=== PATIENT | male | born 1935 | race African-American/Black ===

== ENCOUNTER 2018-12-16 16:50 | Emergency (ER) | payer MEDICARE, OTHER ==
[2018-12-16 17:27] LABS: #Basophils 0.1 thou/uL (0.0-0.2); #Lymphocytes 1.6 thou/uL (1.20-3.40); #Monocytes 0.7 thou/uL (0.11-0.59); #Neutrophils 5.9 thou/uL (1.40-6.50); %Basophils 1.1 % (0.0-1.0); %Eosinophils 0.4 % (0.0-10.0); %Lymphocytes 19.2 % (21.0-51.0); %Monocytes 8.9 % (0.0-10.0); %Neutrophils 70.5 % (42.0-75.0); Hemoglobin 14.1 g/dL (14.0-18.0); Mean Corpuscular HGB CONC 31.1 g/dL (32.0-36.0); Mean Corpuscular Hemoglobin 24.6 pg (27.0-31.0); Mean Corpuscular Volume 79.3 fL (78.0-98.0); Mean Platelet Volume 10.3 fL (7.4-10.4); Platelet Count 219 thou/uL (130-400); RBC Distribution Width 14.4 % (11.5-14.5); Red Blood Cell (RBC) Count 5.71 mill/uL (4.70-6.10); White Blood Cell (WBC) Count 8.4 thou/uL (4.8-10.8)
--- NOTE | 2018-12-16 17:46 | RAD ---
XR Chest 1 View Portable HISTORY: Hypertension and diabetes COMPARISON: None. FINDINGS: Heart size and mediastinum are within normal limits. There are atherosclerotic changes of t he aorta. The lungs are clear of infiltrative process. IMPRESSION: No active intrathoracic disease.
[2018-12-16 17:48] LABS: ALT (SGPT) 21 U/L (8-55); AST (SGOT) 21 U/L (5-34); Albumin 4.6 g/dL (3.4-4.8); Alkaline Phosphatase 77 U/L (40-150); Anion Gap 19 mmol/L (10-20); BUN (Urea Nitrogen) 48 mg/dL (8.4-25.7); Bilirubin, Total 0.8 mg/dL (0.2-1.2); CK (CPK) 281 U/L (30-200); Calc. Creatinine Clearance 0 mL/min (70-130); Calcium 9.9 mg/dL (7.8-10.44); Carbon Dioxide 24 mmol/L (23-31); Chloride 104 mmol/L (98-107); Estimated GFR-MDRD 36; Globulin 3.5 g/dL (2.4-3.5); Glucose 131 mg/dL (83-110); Magnesium 2.8 mg/dL (1.6-2.6); Potassium 3.7 mmol/L (3.5-5.1); Protein, Total 8.1 g/dL (5.8-8.1); Sodium 143 mmol/L (136-145)
[2018-12-16 18:02] LABS: Thyroid Stimulating Hormone 0.8874 uIU/mL (0.35-4.94)
[2018-12-16 18:03] LABS: HBSAg Index 0.42 S/CO (0-0.99); Hep B Surf Ag Non-Reactive S/CO (NonReactive); Hep C IgG Ab Non-Reactive (NonReactive); Hep C Index 0.05 S/CO (0-0.79)
[2018-12-16 18:04] LABS: HIV (1/2) Antibody/Antigen Non-Reactive (NonReactive)
[2018-12-16 18:05] LABS: HIV 1/2 INDEX 0.09 S/CO (<1.00)
[2018-12-16 18:37] LABS: Bilirubin Negative (Negative); Blood, Urine Trace (Negative); Clarity Turbid (Clear); Glucose, Urine (Dipstick) Normal (Negative); Leukocyte Negative Leu/uL (Negative); Nitrite Negative (Negative); Protein, Urine (Dipstick) 200 mg/dL (Neg-Trace); RBC/HPF 0-3 HPF (0-3); Squamous Epithelial None Seen HPF (0-3); Urobilinogen Normal mg/dL (Less than 2); WBC/HPF 0-3 HPF (0-3)
[2018-12-16 18:46] LABS: Bacteria/HPF 1+ HPF (None Seen)
== END 2018-12-16 20:36 | disposition home or self-care (01) ==
LOC: ERS 16:50
DX: R53.81 Other malaise (principal); E11.9 Type 2 diabetes mellitus without complications; I10 Essential (primary) hypertension; Z79.82 Long term (current) use of aspirin; Z79.899 Other long term (current) drug therapy; Z79.84 Long term (current) use of oral hypoglycemic drugs
CPT/HCPCS: 36415; 36416; 71045; 80053; 81003; 81015; 82550; 83605; 83735; 83880; 84443; 84484; 85025; 86803; 87340; 87389

== ENCOUNTER 2021-10-26 12:12 | Observation (INO) | payer MEDICARE ==
[2021-10-26 13:20] LABS: #Lymphocytes 0.9 thou/uL (1.20-3.40); #Monocytes 0.7 thou/uL (0.11-0.59); #Neutrophils 4.8 thou/uL (1.40-6.50); %Basophils 0.3 % (0.0-1.0); %Eosinophils 0.8 % (0.0-10.0); %Lymphocytes 13.6 % (21.0-51.0); %Monocytes 10.3 % (0.0-10.0); %Neutrophils 75.1 % (42.0-75.0); Mean Corpuscular HGB CONC 30.6 g/dL (32.0-36.0); Mean Corpuscular Hemoglobin 26.4 pg (27.0-31.0); Mean Corpuscular Volume 86.2 fL (78.0-98.0); Platelet Count 150 thou/uL (130-400); RBC Distribution Width 13.1 % (11.5-14.5); Red Blood Cell (RBC) Count 5.68 mill/uL (4.70-6.10); White Blood Cell (WBC) Count 6.4 thou/uL (4.8-10.8)
[2021-10-26 13:33] LABS: ALT (SGPT) 29 U/L (8-55); AST (SGOT) 26 U/L (5-34); Alkaline Phosphatase 89 U/L (40-110); Anion Gap 19 mmol/L (10-20); BUN (Urea Nitrogen) 35 mg/dL (8.4-25.7); Bilirubin, Total 1.1 mg/dL (0.2-1.2); Calc. Creatinine Clearance 0 mL/min (70-130); Calcium 9.4 mg/dL (7.8-10.44); Carbon Dioxide 24 mmol/L (23-31); Chloride 108 mmol/L (98-107); Globulin 4.4 g/dL (2.4-3.5); Glucose 125 mg/dL (83-110); Lipase 36 U/L (8-78); Potassium 3.4 mmol/L (3.5-5.1); Protein, Total 8.4 g/dL (5.8-8.1); Sodium 148 mmol/L (136-145)
[2021-10-26] MEDS ORDERED: Aspirin Chewable 81 MG TAB ONE (14:12)
[2021-10-26 15:23] LABS: Cardiac Risk 6.8 (Less than 4.5); Cholesterol 198 mg/dl (< 200 Desired); HDL Cholesterol 29 mg/dL (>60 Neg Risk); LDL Cholesterol, Calculated 136 mg/dL; Triglycerides 166 mg/dL (Less than 150)
[2021-10-26] MEDS ORDERED: Acetaminophen 325 MG TAB PO PRN (15:47)
[2021-10-26] MEDS ORDERED: HumaLOG 300 UNITS/3 ML VIAL SC PRN ×2 (15:55)
[2021-10-26] MEDS ORDERED: Dextrose 5% in Water 1,000 ML IV PRN (15:55)
[2021-10-26] MEDS ORDERED: Dextrose 50% Abboject 50 ML SYRINGE SLOW IVP PRN (15:55)
[2021-10-26] MEDS ORDERED: Potassium Chloride 40 MEQ in Dextrose 5% in Water 1,000 ML IV SCH (16:00)
[2021-10-26 16:09] LABS: Troponin I 0.016 ng/mL (< 0.028)
[2021-10-26] MEDS: Potassium Chloride 40 MEQ in Dextrose 5% in Water 1,000 ML IV SCH (18:10)
[2021-10-26 21:18] LABS: Anion Gap 17 mmol/L (10-20); BUN (Urea Nitrogen) 28 mg/dL (8.4-25.7); Calc. Creatinine Clearance 39 mL/min (70-130); Calcium 8.5 mg/dL (7.8-10.44); Carbon Dioxide 22 mmol/L (23-31); Chloride 109 mmol/L (98-107); Glucose 106 mg/dL (83-110); Potassium 3.4 mmol/L (3.5-5.1); Sodium 145 mmol/L (136-145)
[2021-10-26 21:31] LABS: Troponin I 0.013 ng/mL (< 0.028)
[2021-10-27 04:21] LABS: #Eosinphils 0.1 thou/uL (0.0-0.7); #Lymphocytes 1.3 thou/uL (1.20-3.40); #Monocytes 0.7 thou/uL (0.11-0.59); #Neutrophils 3.8 thou/uL (1.40-6.50); %Basophils 0.2 % (0.0-1.0); %Eosinophils 1.4 % (0.0-10.0); %Lymphocytes 21.8 % (21.0-51.0); %Monocytes 11.8 % (0.0-10.0); %Neutrophils 64.7 % (42.0-75.0); Hemoglobin 12.5 g/dL (14.0-18.0); Mean Corpuscular HGB CONC 30.6 g/dL (32.0-36.0); Mean Corpuscular Hemoglobin 26.4 pg (27.0-31.0); Mean Corpuscular Volume 86.4 fL (78.0-98.0); Mean Platelet Volume 9.7 fL (7.4-10.4); Platelet Count 134 thou/uL (130-400); RBC Distribution Width 12.9 % (11.5-14.5); Red Blood Cell (RBC) Count 4.73 mill/uL (4.70-6.10); White Blood Cell (WBC) Count 5.9 thou/uL (4.8-10.8)
[2021-10-27 04:41] LABS: ALT (SGPT) 19 U/L (8-55); AST (SGOT) 18 U/L (5-34); Albumin 3.3 g/dL (3.4-4.8); Alkaline Phosphatase 73 U/L (40-110); Anion Gap 13 mmol/L (10-20); BUN (Urea Nitrogen) 24 mg/dL (8.4-25.7); Bilirubin, Total 1.2 mg/dL (0.2-1.2); Calc. Creatinine Clearance 41 mL/min (70-130); Calcium 8.4 mg/dL (7.8-10.44); Carbon Dioxide 27 mmol/L (23-31); Chloride 106 mmol/L (98-107); Globulin 3.3 g/dL (2.4-3.5); Glucose 121 mg/dL (83-110); Potassium 3.5 mmol/L (3.5-5.1); Protein, Total 6.6 g/dL (5.8-8.1); Sodium 142 mmol/L (136-145)
[2021-10-27 07:51] LABS: Bacteria/HPF None Seen HPF (None Seen); Bilirubin Negative (Negative); Blood, Urine 1+ (Negative); Clarity Clear (Clear); Glucose, Urine (Dipstick) Normal (Negative); Ketone, Urine Negative (Negative); Leukocyte 25 Leu/uL (Negative); Nitrite Negative (Negative); Protein, Urine (Dipstick) 70 mg/dL (Neg-Trace); RBC/HPF 0-3 HPF (0-3); Specific Gravity, Urine 1.029 (1.002-1.036); Squamous Epithelial 0-3 HPF (0-3); Urobilinogen 3 mg/dL (Less than 2); WBC/HPF 0-3 HPF (0-3)
[2021-10-27 07:52] LABS: Urine Culture Reflex Yes Yes
[2021-10-27] MEDS: Aspirin Chewable 81 MG TAB PO SCH (10:33)
[2021-10-27] MEDS ORDERED: Non-Formulary Item 1 EACH (Rosuvastatin Calcium [Rosuvastatin Calcium] 40 MG Tablet) PO SCH (21:00)
[2021-10-27] MEDS: NIRMATRELVIR 150 MG/RITONAVIR 100 MG TABLET PO SCH (21:31)
[2021-10-27] MEDS: Potassium Chloride 40 MEQ in Dextrose 5% in Water 1,000 ML IV SCH (22:17)
[2021-10-28 04:50] LABS: #Eosinphils 0.1 thou/uL (0.0-0.7); #Lymphocytes 1.1 thou/uL (1.20-3.40); #Monocytes 0.7 thou/uL (0.11-0.59); %Basophils 0.6 % (0.0-1.0); %Eosinophils 1.2 % (0.0-10.0); %Lymphocytes 22.3 % (21.0-51.0); %Monocytes 13.5 % (0.0-10.0); %Neutrophils 62.4 % (42.0-75.0); Hemoglobin 12.7 g/dL (14.0-18.0); Mean Corpuscular HGB CONC 31.3 g/dL (32.0-36.0); Mean Corpuscular Hemoglobin 26.6 pg (27.0-31.0); Mean Platelet Volume 11.2 fL (7.4-10.4); Platelet Count 123 thou/uL (130-400); RBC Distribution Width 12.8 % (11.5-14.5); Red Blood Cell (RBC) Count 4.77 mill/uL (4.70-6.10); White Blood Cell (WBC) Count 4.9 thou/uL (4.8-10.8)
[2021-10-28 05:08] LABS: ALT (SGPT) 17 U/L (8-55); AST (SGOT) 18 U/L (5-34); Albumin 3.1 g/dL (3.4-4.8); Alkaline Phosphatase 73 U/L (40-110); Anion Gap 12 mmol/L (10-20); BUN (Urea Nitrogen) 13 mg/dL (8.4-25.7); Calc. Creatinine Clearance 50 mL/min (70-130); Calcium 8.3 mg/dL (7.8-10.44); Carbon Dioxide 23 mmol/L (23-31); Chloride 106 mmol/L (98-107); Globulin 3.4 g/dL (2.4-3.5); Glucose 109 mg/dL (83-110); Potassium 3.5 mmol/L (3.5-5.1); Protein, Total 6.5 g/dL (5.8-8.1); Sodium 137 mmol/L (136-145)
[2021-10-28] MEDS ORDERED: Furosemide 20 MG TAB PO SCH (09:00)
[2021-10-28] MEDS ORDERED: Non-Formulary Item 1 EACH (Omeprazole [Omeprazole] 20 MG Capsule.Dr) PO SCH (09:00)
[2021-10-28] MEDS ORDERED: metFORMIN 500 MG TAB PO SCH (09:00)
[2021-10-28] MEDS: NIRMATRELVIR 150 MG/RITONAVIR 100 MG TABLET PO SCH (09:28)
[2021-10-28] MEDS: Aspirin Chewable 81 MG TAB PO SCH (09:29)
[2021-10-28] MEDS ORDERED: Ascorbic Acid 500 mg Chewable Tablet PO SCH (09:45)
[2021-10-28] MEDS ORDERED: Zinc Sulfate 220 MG CAP PO SCH (09:45)
[2021-10-28 09:56] VITALS: BMI 24.1
[2021-10-28 11:42] VITALS: BP 153/75; TEMP 98.1
[2021-10-29] MEDS ORDERED: Zinc Sulfate 220 MG CAP PO SCH (09:00)
[2021-10-29] MEDS ORDERED: Ascorbic Acid 500 mg Chewable Tablet PO SCH (09:00)
== END 2021-10-28 15:06 | disposition home or self-care (01) ==
LOC: ERS 12:12 → 2NO 14:40
PROVIDERS: ADMIT Internal Medicine; ATTEND Internal Medicine
DX: U07.1 COVID-19 (principal); N17.9 Acute kidney failure, unspecified; E86.0 Dehydration; Z20.822 Contact with and (suspected) exposure to COVID-19; E87.1 Hypo-osmolality and hyponatremia; E87.6 Hypokalemia; E88.09 Other disorders of plasma-protein metabolism, not elsewhere classified; E78.1 Pure hyperglyceridemia; R53.1 Weakness; E11.9 Type 2 diabetes mellitus without complications; I10 Essential (primary) hypertension; I25.2 Old myocardial infarction; Z87.891 Personal history of nicotine dependence; Z79.84 Long term (current) use of oral hypoglycemic drugs; Z79.899 Other long term (current) drug therapy
CPT/HCPCS: 71045; 80048; 80053 ×2; 80061; 81001; 82962 ×3; 83690; 83735; 83880; 84484 ×2; 85025 ×2; 87086; 93005; 93306; 94760; 96360; 96361; 97535; 99285; U0003; U0005; 36415; 36416; 84443; G0378; J3480; J7070

== ENCOUNTER 2022-06-15 11:25 | Inpatient (IN) | payer MEDICARE, OTHER ==
[2022-06-15 12:31] LABS: #Lymphocytes 0.9 thou/uL (1.20-3.40); #Monocytes 0.6 thou/uL (0.11-0.59); #Neutrophils 7.4 thou/uL (1.40-6.50); %Basophils 0.5 % (0.0-1.0); %Eosinophils 0.1 % (0.0-10.0); %Lymphocytes 9.7 % (21.0-51.0); %Monocytes 6.2 % (0.0-10.0); %Neutrophils 83.5 % (42.0-75.0); Hemoglobin 13.8 g/dL (14.0-18.0); Mean Corpuscular HGB CONC 30.7 g/dL (32.0-36.0); Mean Corpuscular Hemoglobin 26.1 pg (27.0-31.0); Mean Corpuscular Volume 85.2 fl (78.0-98.0); Mean Platelet Volume 10.5 fL (7.4-10.4); Platelet Count 187 10x3/uL (130-400); RBC Distribution Width 12.9 % (11.5-14.5); Red Blood Cell (RBC) Count 5.29 mill/uL (4.70-6.10); White Blood Cell (WBC) Count 8.8 10x3/uL (4.8-10.8)
[2022-06-15] MEDS ORDERED: Cefepime 2 GM VIAL ONE (12:39)
[2022-06-15] MEDS ORDERED: Aspirin Chewable 81 MG TAB ONE (12:39)
[2022-06-15 12:42] LABS: PTT 30.1 sec (22.9-36.1); Prothrombin Time 13.3 sec (12.0-14.7)
[2022-06-15 12:43] LABS: Acetaminophen Less than 10.0 mcg/mL (10.0-30.0); Alcohol Less than 10 mg/dL (Less than 10); Salicylate Less than 8.0 mg/dL (15.0-30.0)
[2022-06-15 12:45] LABS: ALT (SGPT) 15 U/L (8-55); AST (SGOT) 18 U/L (5-34); Albumin 4.2 g/dL (3.4-4.8); Alkaline Phosphatase 100 U/L (40-110); Anion Gap 18 mmol/L (10-20); BUN (Urea Nitrogen) 22 mg/dL (8.4-25.7); Bilirubin, Total 0.5 mg/dL (0.2-1.2); Calc. Creatinine Clearance 0 mL/min (70-130); Calcium 9.4 mg/dL (7.8-10.44); Carbon Dioxide 21 mmol/L (23-31); Chloride 108 mmol/L (98-107); Estimated GFR 51; Globulin 3.7 g/dL (2.4-3.5); Glucose 124 mg/dL (83-110); Protein, Total 7.9 g/dL (5.8-8.1); Sodium 143 mmol/L (136-145)
[2022-06-15 13:04] LABS: Bacteria/HPF None Seen HPF (None Seen); Bilirubin Negative (Negative); Blood, Urine Trace (Negative); Clarity Clear (Clear); Glucose, Urine (Dipstick) 200 mg/dL (Negative); Ketone, Urine Negative (Negative); Leukocyte Negative Leu/uL (Negative); Nitrite Negative (Negative); Protein, Urine (Dipstick) 50 mg/dL (Neg-Trace); Squamous Epithelial None Seen HPF (0-3); Urobilinogen Normal mg/dL (Less than 2); WBC/HPF 0-3 HPF (0-3); pH, Urine 5.5 (5.0-9.0)
[2022-06-15 13:11] LABS: Amphetamine Not Detected (NotDetected); Barbiturates Screen Not Detected (NotDetected); Benzodiazepine Screen Not Detected (NotDetected); Cocaine Metabolite Screen Not Detected (NotDetected); Methadone Not Detected (NotDetected); Methamphetamine Not Detected (NotDetected); Opiate Screen Not Detected (NotDetected); Oxycodone Screen Not Detected (NotDetected); Phencyclidine (PCP) Not Detected (NotDetected); THC/Cannabinoid Screen Not Detected (NotDetected); Tricyclic Screen Not Detected (NotDetected)
[2022-06-15] MEDS ORDERED: VANCOMYCIN 1.25 GM/250 ML BAG 1.25 GM in Premix Bag 1 BAG IVPB SCH (14:00)
[2022-06-15 15:04] LABS: Lactic Acid 1.6 mmol/L (0.5-2.2)
[2022-06-15 15:09] LABS: Troponin I 0.169 ng/mL (< 0.028)
[2022-06-15] MEDS ORDERED: Ondansetron PF 4 MG/2 ML Vial IVP PRN (15:54)
[2022-06-15] MEDS ORDERED: Ondansetron ODT 4 MG TAB PO PRN (15:54)
[2022-06-15] MEDS ORDERED: Senokot S 8.6-50 MG TAB PO PRN (15:54)
[2022-06-15] MEDS ORDERED: hydrALAZINE 20 MG/ML VIAL SLOW IVP PRN (15:56)
[2022-06-15] MEDS ORDERED: Dextrose 5% in Water 1,000 ML IV PRN (15:58)
[2022-06-15] MEDS ORDERED: Dextrose 50% Abboject 50 ML SYRINGE SLOW IVP PRN (15:58)
[2022-06-15] MEDS ORDERED: HumaLOG 300 UNITS/3 ML VIAL SC PRN ×2 (15:58)
[2022-06-15 16:00] LABS: SARS-CoV-2 NAA Rapid Test Not Detected (NotDetected)
[2022-06-15] MEDS ORDERED: Lactated Ringer's 1,000 ML IV SCH (16:15)
[2022-06-15 18:24] LABS: Troponin I 0.544 ng/mL (< 0.028)
[2022-06-15 18:54] VITALS: BMI 23.1
[2022-06-15] MEDS ORDERED: Vancomycin HCl 750 MG in Sodium Chloride 0.9% 250 ML 250 ML IVPB SCH (20:45)
[2022-06-15 21:36] LABS: CKMB 23.2 ng/mL (0-6.6)
[2022-06-15] MEDS: Rosuvastatin 20 MG TAB PO SCH (21:56)
[2022-06-15] MEDS: Famotidine 20 MG TAB PO SCH (21:57)
[2022-06-15] MEDS ORDERED: Vancomycin 1 GM in Premix Bag 1 BAG IVPB SCH (23:00)
[2022-06-15] MEDS ORDERED: Cefepime 1 GM in Sodium Chloride 0.9% 100 ML IVPB SCH (23:59)
[2022-06-16 01:31] LABS: CKMB 33.4 ng/mL (0-6.6)
[2022-06-16 05:04] LABS: #Lymphocytes 1.2 thou/uL (1.20-3.40); #Monocytes 0.8 thou/uL (0.11-0.59); #Neutrophils 4.2 thou/uL (1.40-6.50); %Basophils 0.3 % (0.0-1.0); %Eosinophils 0.7 % (0.0-10.0); %Lymphocytes 19.1 % (21.0-51.0); %Monocytes 12.8 % (0.0-10.0); %Neutrophils 67.1 % (42.0-75.0); Hemoglobin 12.6 g/dL (14.0-18.0); Mean Corpuscular HGB CONC 33.1 g/dL (32.0-36.0); Mean Corpuscular Hemoglobin 28.3 pg (27.0-31.0); Mean Corpuscular Volume 85.5 fl (78.0-98.0); Mean Platelet Volume 10.6 fL (7.4-10.4); Platelet Count 153 10x3/uL (130-400); RBC Distribution Width 12.9 % (11.5-14.5); Red Blood Cell (RBC) Count 4.47 mill/uL (4.70-6.10); White Blood Cell (WBC) Count 6.2 10x3/uL (4.8-10.8)
[2022-06-16 05:23] LABS: Hemoglobin A1c 5.8 % (4.0-6.0)
[2022-06-16 05:31] LABS: Anion Gap 12 mmol/L (10-20); BUN (Urea Nitrogen) 15 mg/dL (8.4-25.7); Calc. Creatinine Clearance 57 mL/min (70-130); Calcium 8.9 mg/dL (7.8-10.44); Carbon Dioxide 20 mmol/L (23-31); Cardiac Risk 3.2 (Less than 4.5); Chloride 108 mmol/L (98-107); Cholesterol 155 mg/dl (< 200 Desired); Estimated GFR 70; Glucose 72 mg/dL (83-110); HDL Cholesterol 49 mg/dL (>60 Neg Risk); LDL Cholesterol, Calculated 93 mg/dL; Potassium 3.9 mmol/L (3.5-5.1); Sodium 136 mmol/L (136-145); Triglycerides 66 mg/dL (Less than 150)
[2022-06-16] MEDS ORDERED: VANCOMYCIN 1.25 GM/250 ML BAG 1.25 GM in Premix Bag 1 BAG IVPB SCH ×2 (09:00→15:00)
[2022-06-16] MEDS ORDERED: Clopidogrel Bisulfate 75 MG TAB PO SCH (09:30)
[2022-06-16 10:49] LABS: CKMB 33.9 ng/mL (0-6.6)
[2022-06-16] MEDS: Rosuvastatin 20 MG TAB PO SCH (20:42)
[2022-06-16] MEDS: Famotidine 20 MG TAB PO SCH (20:42)
[2022-06-17 07:15] LABS: #Eosinphils 0.1 thou/uL (0.0-0.7); #Lymphocytes 1.3 thou/uL (1.20-3.40); #Monocytes 0.7 thou/uL (0.11-0.59); %Basophils 0.3 % (0.0-1.0); %Eosinophils 1.8 % (0.0-10.0); %Lymphocytes 25.4 % (21.0-51.0); %Monocytes 14.4 % (0.0-10.0); %Neutrophils 58.1 % (42.0-75.0); Mean Corpuscular HGB CONC 31.4 g/dL (32.0-36.0); Mean Corpuscular Hemoglobin 26.6 pg (27.0-31.0); Mean Corpuscular Volume 84.8 fl (78.0-98.0); Platelet Count 160 10x3/uL (130-400); RBC Distribution Width 12.8 % (11.5-14.5); Red Blood Cell (RBC) Count 4.87 mill/uL (4.70-6.10); White Blood Cell (WBC) Count 5.1 10x3/uL (4.8-10.8)
[2022-06-17 07:32] LABS: Anion Gap 8 mmol/L (10-20); BUN (Urea Nitrogen) 14 mg/dL (8.4-25.7); Calc. Creatinine Clearance 52 mL/min (70-130); Calcium 9.3 mg/dL (7.8-10.44); Carbon Dioxide 28 mmol/L (23-31); Chloride 105 mmol/L (98-107); Estimated GFR 64; Glucose 91 mg/dL (83-110); Sodium 137 mmol/L (136-145)
[2022-06-17] MEDS ORDERED: hydrALAZINE 20 MG/ML VIAL SLOW IVP PRN ×2 (09:32→09:39)
[2022-06-17] MEDS: Clopidogrel Bisulfate 75 MG TAB PO SCH (10:21)
[2022-06-17] MEDS: Aspirin 81 mg Enteric Coated Tablet PO SCH (10:22)
[2022-06-17] MEDS: Rosuvastatin 20 MG TAB PO SCH (20:48)
[2022-06-17] MEDS: Famotidine 20 MG TAB PO SCH (20:48)
[2022-06-17] MEDS: Metoprolol Tartrate 25 MG TAB PO SCH (21:57)
[2022-06-18 05:59] LABS: #Eosinphils 0.1 thou/uL (0.0-0.7); #Lymphocytes 1.5 thou/uL (1.20-3.40); #Monocytes 0.6 thou/uL (0.11-0.59); #Neutrophils 3.2 thou/uL (1.40-6.50); %Basophils 0.1 % (0.0-1.0); %Eosinophils 2.1 % (0.0-10.0); %Lymphocytes 27.2 % (21.0-51.0); %Monocytes 11.3 % (0.0-10.0); %Neutrophils 59.3 % (42.0-75.0); Hemoglobin 12.6 g/dL (14.0-18.0); Mean Corpuscular Volume 84.4 fl (78.0-98.0); Mean Platelet Volume 10.1 fL (7.4-10.4); Platelet Count 162 10x3/uL (130-400); Red Blood Cell (RBC) Count 4.64 mill/uL (4.70-6.10); White Blood Cell (WBC) Count 5.3 10x3/uL (4.8-10.8)
[2022-06-18 06:28] LABS: Anion Gap 10 mmol/L (10-20); BUN (Urea Nitrogen) 17 mg/dL (8.4-25.7); Calc. Creatinine Clearance 47 mL/min (70-130); Calcium 8.9 mg/dL (7.8-10.44); Carbon Dioxide 23 mmol/L (23-31); Chloride 105 mmol/L (98-107); Estimated GFR 56; Glucose 88 mg/dL (83-110); Magnesium 2.1 mg/dL (1.6-2.6); Potassium 4.2 mmol/L (3.5-5.1); Sodium 134 mmol/L (136-145)
[2022-06-18] MEDS: Clopidogrel Bisulfate 75 MG TAB PO SCH (08:33)
[2022-06-18] MEDS: Metoprolol Tartrate 25 MG TAB PO SCH ×2 (08:33→20:14)
[2022-06-18] MEDS: Aspirin 81 mg Enteric Coated Tablet PO SCH (08:33)
[2022-06-18] MEDS: Rosuvastatin 20 MG TAB PO SCH (20:14)
[2022-06-18] MEDS: Famotidine 20 MG TAB PO SCH (20:14)
[2022-06-19] MEDS ORDERED: metFORMIN 500 MG TAB PO SCH (08:15)
[2022-06-19] MEDS: Clopidogrel Bisulfate 75 MG TAB PO SCH (09:29)
[2022-06-19] MEDS: Furosemide 20 MG TAB PO SCH (09:29)
[2022-06-19] MEDS: Metoprolol Tartrate 25 MG TAB PO SCH ×2 (09:30→20:23)
[2022-06-19] MEDS: Aspirin 81 mg Enteric Coated Tablet PO SCH (09:30)
[2022-06-19] MEDS: Acetaminophen 325 MG TAB PO PRN ×2 (14:03→20:23)
[2022-06-19] MEDS: metFORMIN 500 MG TAB PO SCH (17:08)
[2022-06-19] MEDS: Rosuvastatin 20 MG TAB PO SCH (20:23)
[2022-06-20 06:47] LABS: Anion Gap 11 mmol/L (10-20); BUN (Urea Nitrogen) 19 mg/dL (8.4-25.7); Calc. Creatinine Clearance 47 mL/min (70-130); Calcium 9.1 mg/dL (7.8-10.44); Carbon Dioxide 25 mmol/L (23-31); Chloride 103 mmol/L (98-107); Estimated GFR 56; Glucose 84 mg/dL (83-110); Magnesium 2.1 mg/dL (1.6-2.6); Potassium 4.2 mmol/L (3.5-5.1); Sodium 135 mmol/L (136-145)
[2022-06-20] MEDS: metFORMIN 500 MG TAB PO SCH ×2 (09:56→18:06)
[2022-06-20] MEDS: Furosemide 20 MG TAB PO SCH (09:56)
[2022-06-20] MEDS: Metoprolol Tartrate 25 MG TAB PO SCH ×2 (09:56→23:19)
[2022-06-20] MEDS: Clopidogrel Bisulfate 75 MG TAB PO SCH (09:56)
[2022-06-20] MEDS: Aspirin 81 mg Enteric Coated Tablet PO SCH (09:56)
[2022-06-20] MEDS: Rosuvastatin 20 MG TAB PO SCH (23:19)
[2022-06-21 06:37] LABS: Anion Gap 9 mmol/L (10-20); BUN (Urea Nitrogen) 26 mg/dL (8.4-25.7); Calc. Creatinine Clearance 45 mL/min (70-130); Calcium 9.3 mg/dL (7.8-10.44); Carbon Dioxide 28 mmol/L (23-31); Chloride 102 mmol/L (98-107); Estimated GFR 54; Glucose 103 mg/dL (83-110); Magnesium 2.2 mg/dL (1.6-2.6); Potassium 4.3 mmol/L (3.5-5.1); Sodium 135 mmol/L (136-145)
[2022-06-21] MEDS: Aspirin 81 mg Enteric Coated Tablet PO SCH (10:03)
[2022-06-21] MEDS: metFORMIN 500 MG TAB PO SCH ×2 (10:03→18:04)
[2022-06-21] MEDS: Furosemide 20 MG TAB PO SCH (10:03)
[2022-06-21] MEDS: Metoprolol Tartrate 25 MG TAB PO SCH ×2 (10:03→20:15)
[2022-06-21] MEDS: Clopidogrel Bisulfate 75 MG TAB PO SCH (10:03)
[2022-06-21] MEDS: Rosuvastatin 20 MG TAB PO SCH (20:15)
[2022-06-22] MEDS: Clopidogrel Bisulfate 75 MG TAB PO SCH (09:27)
[2022-06-22] MEDS: metFORMIN 500 MG TAB PO SCH ×2 (09:27→17:20)
[2022-06-22] MEDS: Metoprolol Tartrate 25 MG TAB PO SCH ×2 (09:27→19:57)
[2022-06-22] MEDS: Aspirin 81 mg Enteric Coated Tablet PO SCH (09:27)
[2022-06-22] MEDS: Furosemide 20 MG TAB PO SCH (09:27)
[2022-06-22] MEDS: Rosuvastatin 20 MG TAB PO SCH (19:56)
[2022-06-23] MEDS: Aspirin 81 mg Enteric Coated Tablet PO SCH (08:32)
[2022-06-23] MEDS: metFORMIN 500 MG TAB PO SCH ×2 (08:32→19:01)
[2022-06-23] MEDS: Furosemide 20 MG TAB PO SCH (08:32)
[2022-06-23] MEDS: Metoprolol Tartrate 25 MG TAB PO SCH ×2 (08:32→21:15)
[2022-06-23] MEDS: Clopidogrel Bisulfate 75 MG TAB PO SCH (08:32)
[2022-06-23] MEDS: Rosuvastatin 20 MG TAB PO SCH (21:15)
[2022-06-24 08:22] VITALS: BP 133/77; TEMP 97
[2022-06-24] MEDS: Aspirin 81 mg Enteric Coated Tablet PO SCH (09:11)
[2022-06-24] MEDS: Metoprolol Tartrate 25 MG TAB PO SCH (09:11)
[2022-06-24] MEDS: metFORMIN 500 MG TAB PO SCH (09:11)
[2022-06-24] MEDS: Clopidogrel Bisulfate 75 MG TAB PO SCH (09:11)
[2022-06-24] MEDS: Furosemide 20 MG TAB PO SCH (09:12)
== END 2022-06-24 11:16 | DRG 64 ==
LOC: ERS 11:25 → ERHOLD 14:20 → INTOOBSV 14:20 → NEURO 14:38 → OBSVTOIN 06-16 16:03
PROVIDERS: ADMIT Family Medicine; ATTEND Family Medicine
DX: I63.81 Other cerebral infarction due to occlusion or stenosis of small artery (principal); R29.711 NIHSS score 11; Z20.822 Contact with and (suspected) exposure to COVID-19; I21.A1 Myocardial infarction type 2; G81.91 Hemiplegia, unspecified affecting right dominant side; I50.32 Chronic diastolic (congestive) heart failure; N17.9 Acute kidney failure, unspecified; I13.0 Hypertensive heart and chronic kidney disease with heart failure and stage 1 through stage 4 chronic kidney disease, or unspecified chronic kidney disease; R47.1 Dysarthria and anarthria; R29.810 Facial weakness; E78.5 Hyperlipidemia, unspecified; R47.81 Slurred speech; F03.90 Unspecified dementia, unspecified severity, without behavioral disturbance, psychotic disturbance, mood disturbance, and anxiety; N18.9 Chronic kidney disease, unspecified; E11.22 Type 2 diabetes mellitus with diabetic chronic kidney disease; M24.551 Contracture, right hip; I25.2 Old myocardial infarction; Z79.899 Other long term (current) drug therapy; Z79.84 Long term (current) use of oral hypoglycemic drugs; Z79.82 Long term (current) use of aspirin; Z86.16 Personal history of COVID-19; Z87.891 Personal history of nicotine dependence; Z90.49 Acquired absence of other specified parts of digestive tract; Z98.890 Other specified postprocedural states
CPT/HCPCS: 36415; 36416; 51701; 70450; 70496; 70498; 70551; 71045; 80048; 80053; 80061; 80306; 80307; 81003; 81015; 82553; 83036; 83605; 83735; 83880; 84443; 84484; 85025; 85610; 85730; 87040; 87086; 87811; 93005; 93010; 93306; 96365; 96367; 96372; 96376; G0378; J0692; J1650; J3370; J3490; J7050; J7120